=== PATIENT | male | born 1975 | race Two or more races ===

== ENCOUNTER 2021-08-08 10:09 | Emergency (ER) | payer MEDICAID, OTHER ==
[~2021-08-08] VITALS: Ht 175.3 cm; Wt 95.3 kg
[2021-08-08 10:09] VITALS: BP 129/71
[2021-08-08 11:14] LABS: Urine Bacteria FEW /hpf (None Seen); Urine Blood 3+ /uL (Negative); Urine Hyaline Cast FEW /lpf (0 - 2); Urine Mucus FEW (None Seen); Urine Specific Gravity 1.025 (1.001-1.035); Urine WBC 121 /hpf (0 - 3)
[2021-08-08 11:57] LABS: Eosinophils # (auto) 0.7 10 ^3/uL (0-0.8); Red Cell Distribution Width 13.7 % (11.8-14.3)
[2021-08-08 12:02] LABS: Basophils # (auto) 0.1 10 ^3/uL (0-0.2); Basophils % (auto) 0.6 % (0.0-2.0); Eosinophils % (auto) 3.3 % (0.0-7.0); Hemoglobin 17.1 g/dL (13.5-17.5); Lymphocytes % (auto) 8.8 % (10.0-50.0); Mean Corpuscular Hemoglobin 28.2 pg (28.0-32.0); Mean Corpuscular Hgb Conc. 33.5 g/dL (32.0-36.0); Mean Corpuscular Volume 84.3 fL (80.0-100.0); Neutrophils # (auto) 17.8 10 ^3/uL (1.6-8.6); Neutrophils % (auto) 78.3 % (37.0-80.0); Nucleated Red Blood Cells % 0.1 %; Red Blood Cells 6.05 10^6/uL (4.5-5.90); White Blood Cell 22.7 10^3/uL (4.4-10.8)
[2021-08-08 12:21] LABS: Potassium 4.1 mmol/L (3.5-5.1)
[2021-08-08 12:30] LABS: BUN/Creatinine Ratio 10.5; Bilirubin, Total 0.8 mg/dL (0.2-1.0); Total Protein 8.4 g/dL (6.4-8.2)
[2021-08-08] MEDS ORDERED: OXYCODONE W/ ACETAMINOPHEN 5/325MG TABLET PO ONE (15:45)
[2021-08-08] MEDS ORDERED: cefTRIAXone W LIDOCAINE 1 GM IM IM ONE (15:45)
[2021-08-08] MEDS ORDERED: ONDA-144 PO (16:10)
[2021-08-08] MEDS ORDERED: PERCOT PO (16:10)
[2021-08-08] MEDS ORDERED: LEVO500T31 PO (16:10)
[2021-08-08] MEDS ORDERED: cefTRIAXone SOD 1,000 MG VL ONE (17:30)
== END 2021-08-08 18:05 | disposition home or self-care (01) ==
LOC: ER 10:09
DX: N12 Tubulo-interstitial nephritis, not specified as acute or chronic (principal); N39.0 Urinary tract infection, site not specified; Z88.0 Allergy status to penicillin
CPT/HCPCS: 36415; 74176; 80053; 81001; 83690; 85025; 96372; 99284; J0696

== ENCOUNTER 2021-08-09 17:12 | Inpatient (IN) | payer MEDICAID ==
[~2021-08-09] VITALS: Ht 175.3 cm; Wt 91.0 kg
[~2021-08-09 17:12] MED LIST: LEVO500T31 PO; ONDA-144 PO; PERCOT PO
[2021-08-09 18:07] LABS: Urine Bacteria FEW /hpf (None Seen); Urine Blood 3+ /uL (Negative); Urine Mucus FEW (None Seen); Urine Specific Gravity 1.025 (1.001-1.035); Urine WBC 217 /hpf (0 - 3)
[2021-08-09 19:09] LABS: Basophils # (auto) 0.1 10 ^3/uL (0-0.2); Hemoglobin 14.6 g/dL (13.5-17.5); Lymphocytes # (auto) 2.3 10 ^3/uL (0.4-5.4); Mean Corpuscular Hemoglobin 26.8 pg (28.0-32.0)
[2021-08-09 19:10] LABS: Basophils % (auto) 0.4 % (0.0-2.0); Eosinophils # (auto) 0.6 10 ^3/uL (0-0.8); Eosinophils % (auto) 2.9 % (0.0-7.0); Hematocrit 44.8 % (41.0-53.0); Mean Corpuscular Hgb Conc. 32.7 g/dL (32.0-36.0); Mean Corpuscular Volume 81.9 fL (80.0-100.0); Monocytes # (auto) 1.6 10 ^3/uL (0-1.3); Monocytes % (auto) 7.7 % (0.0-12.0); Neutrophils # (auto) 16.4 10 ^3/uL (1.6-8.6); Red Blood Cells 5.47 10^6/uL (4.5-5.90); Red Cell Distribution Width 13.7 % (11.8-14.3)
[2021-08-09] MEDS ORDERED: SODIUM CHLORIDE 0.9% 1,000 ML IV ONE (19:15)
[2021-08-09] MEDS ORDERED: MORPHINE SULFATE 4 MG/ML SYR/VIAL IV ONE (19:15)
[2021-08-09] MEDS ORDERED: ONDANSETRON HCL 4 MG/2 ML VIAL IV ONE (19:15)
[2021-08-09 19:24] LABS: Albumin 3.3 g/dL (3.4-5.0); BUN/Creatinine Ratio 10.4; Calcium 8.8 mg/dL (8.5-10.1); Potassium 4.1 mmol/L (3.5-5.1)
[2021-08-09 19:27] LABS: Bilirubin, Total 0.5 mg/dL (0.2-1.0); Total Protein 7.6 g/dL (6.4-8.2)
[2021-08-09] MEDS ORDERED: ACETAMINOPHEN 325 MG TAB PO PRN (21:45)
[2021-08-09] MEDS ORDERED: ONDANSETRON HCL 4 MG/2 ML VIAL IV PRN (21:45)
[2021-08-09] MEDS ORDERED: TEMAZEPAM 15 MG CAP PO PRN (21:45)
[2021-08-09] MEDS ORDERED: HYDROcodone-ACET 5/325MG TAB PO PRN (21:45)
[2021-08-09] MEDS ORDERED: levoFLOXacin 500MG 100 ML IV ONE (22:00)
[2021-08-10 07:13] LABS: Basophils # (auto) 0.1 10 ^3/uL (0-0.2); Eosinophils # (auto) 1.3 10 ^3/uL (0-0.8); Lymphocytes # (auto) 2.3 10 ^3/uL (0.4-5.4); Lymphocytes % (auto) 13.2 % (10.0-50.0); Mean Corpuscular Volume 82.5 fL (80.0-100.0); Monocytes # (auto) 1.5 10 ^3/uL (0-1.3)
[2021-08-10 07:15] LABS: Basophils % (auto) 0.6 % (0.0-2.0); Eosinophils % (auto) 7.3 % (0.0-7.0); Hematocrit 42.6 % (41.0-53.0); Hemoglobin 14.1 g/dL (13.5-17.5); Mean Corpuscular Hemoglobin 27.2 pg (28.0-32.0); Monocytes % (auto) 8.7 % (0.0-12.0); Neutrophils # (auto) 12.2 10 ^3/uL (1.6-8.6); Neutrophils % (auto) 70.2 % (37.0-80.0); Red Blood Cells 5.16 10^6/uL (4.5-5.90); Red Cell Distribution Width 13.3 % (11.8-14.3); White Blood Cell 17.4 10^3/uL (4.4-10.8)
[2021-08-10 07:21] LABS: Albumin 2.8 g/dL (3.4-5.0); Calcium 8.5 mg/dL (8.5-10.1); Potassium 4.2 mmol/L (3.5-5.1)
[2021-08-10 07:25] LABS: Bilirubin, Total 0.5 mg/dL (0.2-1.0); Total Protein 6.9 g/dL (6.4-8.2)
[2021-08-10] MEDS ORDERED: PANTOPRAZOLE 40 MG TAB PO SCH (10:00)
[2021-08-10 16:28] VITALS: BP 110/66
[2021-08-10 22:00] VITALS: BP 107/74
[2021-08-10] MEDS: levoFLOXacin 500MG 100 ML IV SCH (22:30)
[2021-08-11 05:00] VITALS: BP 118/73
[2021-08-11 05:59] LABS: Basophils # (auto) 0 10 ^3/uL (0-0.2); Basophils % (auto) 0.3 % (0.0-2.0); Eosinophils # (auto) 1.6 10 ^3/uL (0-0.8); Eosinophils % (auto) 9.8 % (0.0-7.0); Hematocrit 46.7 % (41.0-53.0); Hemoglobin 15.5 g/dL (13.5-17.5); Lymphocytes # (auto) 1.3 10 ^3/uL (0.4-5.4); Lymphocytes % (auto) 8.1 % (10.0-50.0); Mean Corpuscular Hemoglobin 27.8 pg (28.0-32.0); Mean Corpuscular Hgb Conc. 33.3 g/dL (32.0-36.0); Mean Corpuscular Volume 83.7 fL (80.0-100.0); Monocytes # (auto) 1.2 10 ^3/uL (0-1.3); Monocytes % (auto) 7.2 % (0.0-12.0); Neutrophils # (auto) 12.3 10 ^3/uL (1.6-8.6); Neutrophils % (auto) 74.6 % (37.0-80.0); Red Blood Cells 5.58 10^6/uL (4.5-5.90); Red Cell Distribution Width 13.7 % (11.8-14.3); White Blood Cell 16.6 10^3/uL (4.4-10.8)
[2021-08-11 06:24] LABS: Potassium 4.7 mmol/L (3.5-5.1)
[2021-08-11 06:30] LABS: BUN/Creatinine Ratio 16.3; Calcium 8.9 mg/dL (8.5-10.1)
[2021-08-11 08:30] VITALS: BP 121/70
[2021-08-11 17:17] VITALS: BP 117/72
[2021-08-11] MEDS: levoFLOXacin 500MG 100 ML IV SCH (21:22)
[2021-08-11 21:57] VITALS: BP 117/75
[2021-08-12 05:00] VITALS: BP 121/75
[2021-08-12 05:47] LABS: Basophils # (auto) 0.1 10 ^3/uL (0-0.2); Basophils % (auto) 0.6 % (0.0-2.0); Eosinophils # (auto) 1.3 10 ^3/uL (0-0.8); Eosinophils % (auto) 13.6 % (0.0-7.0); Hematocrit 44.9 % (41.0-53.0); Hemoglobin 15.2 g/dL (13.5-17.5); Lymphocytes # (auto) 1.9 10 ^3/uL (0.4-5.4); Lymphocytes % (auto) 20.1 % (10.0-50.0); Mean Corpuscular Hemoglobin 28.1 pg (28.0-32.0); Mean Corpuscular Volume 82.8 fL (80.0-100.0); Monocytes # (auto) 1.2 10 ^3/uL (0-1.3); Monocytes % (auto) 12.4 % (0.0-12.0); Neutrophils # (auto) 5.1 10 ^3/uL (1.6-8.6); Neutrophils % (auto) 53.3 % (37.0-80.0); Nucleated Red Blood Cells % 0.1 %; Red Blood Cells 5.42 10^6/uL (4.5-5.90); Red Cell Distribution Width 13.3 % (11.8-14.3); White Blood Cell 9.5 10^3/uL (4.4-10.8)
[2021-08-12 05:53] LABS: Potassium 4.4 mmol/L (3.5-5.1)
[2021-08-12 05:57] LABS: BUN/Creatinine Ratio 16.5; Calcium 8.5 mg/dL (8.5-10.1)
[2021-08-12 08:00] VITALS: BP 126/84
[2021-08-12 09:16] VITALS: BP 126/84
[2021-08-12 13:07] VITALS: BP 112/70
[2021-08-12 17:08] VITALS: BP 108/59
== END 2021-08-12 17:00 | disposition home or self-care (01) | DRG 720 ==
LOC: ER 17:12 → OVERFLOW 21:43 → WEST WING 08-10 15:33
PROVIDERS: ADMIT Nurse Practitioner; ATTEND Internal Medicine Pulmonary Disease
DX: A41.9 Sepsis, unspecified organism (principal); N12 Tubulo-interstitial nephritis, not specified as acute or chronic; N45.1 Epididymitis; Z88.0 Allergy status to penicillin; Z83.3 Family history of diabetes mellitus; Z20.822 Contact with and (suspected) exposure to COVID-19
CPT/HCPCS: 36415; 76870; 80048; 80053; 81001; 83605; 85025; 87040; 87086; 87426; 96361; 96365; 96366; 96375; G0378; J1956; J2405